=== PATIENT | female | born 1960 | race Two or more races ===

== ENCOUNTER 2024-10-23 15:27 | Emergency (ER) | payer OTHER ==
[~2024-10-23] VITALS: Ht 154.9 cm; Wt 74.7 kg
--- NOTE | 2024-10-23 16:06 | ED.PDOC ---
Musculoskeletal HPI Comments 64-year-old female patient presents to the emergency room for left lateral neck pain, left shoulder pain and left posterior knee pain. Patient reports that the pain in the neck started 2 years ago. Patient has increasing pain with lateral movements of the head. Patient reports that pain in the shoulder and the knee started 3 days ago. Patient denies any injury or trauma. Chief Complaint: Lower Extremity Time Seen by MD: 15:51 Primary Care Provider: damian Mcgovern Notes: Nurses Notes, Medications Allergies: Coded Allergies: NO KNOWN ALLERGIES (Unverified , 10/23/24) Home Meds Active Scripts Diclofenac Sodium (Actinic Ker (Diclofenac Sodium) 3 % Gel, 3 % TD TID for 21 Days, #252 GRAMS 0 Refills Prov:EDUARDO PEREZ DISCOUNT CLERK 10/23/24 Lidocaine (Anorectal) (Lidocaine 5%) 5 % Cre, 5 % EX QID for 21 Days, #168 GRAMS 0 Refills Prov:EDUARDO PEREZ DISCOUNT CLERK 10/23/24 Ibuprofen (Ibuprofen) 600 Mg Tab, 600 MG PO TID for 30 Days, #90 TAB 0 Refills Prov:EDUARDO PEREZ [facility] 10/23/24 Mode of Arrival: Ambulatory Past Medical History PAST MEDICAL HISTORY: Denies Surgical History: Denies all surgeries FEED CRUSHER History: No Pertinent FEED CRUSHER History Family History Family History: Reviewed,noncontributory to illness Social History Smoker: Non-Smoker Alcohol: Denies ETOH Use Drugs: Denies Drug Use Lives In: Home Constitutional: denies: chills, diaphoresis, fatigue, fever, malaise, sweats, weakness, others EENTM: denies: blurred vision, double vision, ear bleeding, ear discharge, ear drainage, ear pain, ear ringing, eye pain, eye redness, hearing loss, mouth pain, mouth swelling, nasal discharge, nose bleeding, nose congestion, nose pain, photophobia, tearing, throat pain, throat swelling, voice changes, others Respiratory: denies: cough, hemoptysis, orthopnea, SOB at rest, shortness of breath, SOB with excertion, stridor, wheezing, others Cardiovascular: denies: chest pain, dizzy spells, diaphoresis, Dyspnea on exertion, edema, irregular heart beat, left arm pain, lightheadedness, palpitations, PND, syncope, others Gastrointestinal: denies: abdomen distended, abdominal pain, blood streaked bowels, constipated, diarrhea, dysphagia, difficulty swallowing, hematemesis, melena, nausea, poor appetite, poor fluid intake, rectal bleeding, rectal pain, vomiting, others Genitourinary: denies: abnormal vagina bleeding, burning, dyspareunia, dysuria, flank pain, frequency, hematuria, incontinence, pain, , vagina discharge, urgency, others Neurological: denies: dizziness, fainting, headache, left sided numbness, left sided weakness, numbness, paresthesia, pre-existing deficit, right sided numbness, right sided weakness, seizure, speech problems, tingling, tremors, weakness, others Musculoskeletal: reports: joint pain, joint swelling, neck pain Integumetry: denies: bruises, change in color, change in hair/nails, dryness, laceration, lesions, lumps, rash, wounds, others Allergic/Immunocompromised: denies: Difficulty Healing, Frequent Infections, Hives, Itching, others Hematologic/Lymphatic: denies: anemia, blood clots, easy bleeding, easy bruising, swollen glands, others Endocrine: denies: excessive hunger, excessive sweating, excessive thirst, excessive urination, flushing, intolerance to cold, intolerance to heat, unexplained weight gain, unexplained weight loss, others Psychiatric: denies: anxiety, bipolar disorder, depression, hopeless, panic disorder, schizophrenia, sleepless, suicidal, others All Other Systems: Reviewed and Negative Physical Exam General Appearance: No Apparent Distress, Normal HEENT: Normal ENT Inspection, Pharynx Normal, TMs Normal Neck: Full Range of Motion, Non-Tender, Normal, Normal Inspection Respiratory: Chest Non-Tender, Lungs Clear, No Accessory Muscle Use, No Respiratory Distress, Normal Breath Sounds Cardiovascular: No Edema, No JVD, No Murmur, No Gallop, Normal Peripheral Pulses, Regular Rate/Rhythm Breast Exam: Deferred Gastrointestinal: No Organomegaly, Non Tender, No Pulsatile Mass, Normal Bowel Sounds, Soft Genitalia: Deferred Pelvic: Deferred Rectal: Deferred Extremities: Calf tenderness, No calf tenderness (Left calf tenderness, no erythema, no swelling, no), Normal capillary refill, Normal inspection, Normal range of motion, No pedal edema Musculoskeletal : Location: Left Extremity Location: Knee, Shoulder Apperance: Swelling, Tenderness: Mild Neurologic: Alert, knitting machine operator II-XII nml as Tested, No Motor Deficits, Normal Affect, Normal Mood, No Sensory Deficits Cerebellar Function: Normal Reflexes: Normal Skin: Dry, Normal Color, Warm Lymphatic: No Adenopathy Was a procedure done? Was a procedure done?: No Differential Diagnosis EXT Differential Diagnosis: Sprain, Strain, Arthritis, Bursitis X-Ray, Labs, Meds, VS Vital Signs Date Time Temp Pulse Resp B/P (MAP) Pulse Ox O2 Delivery O2 Flow Rate FiO2 10/23/24 15:51 97.6 83 16 159/51 (87) 97 PATIENT: RACHID ANTONIOT: [id number]: [id number] : 1960 LOC: ER ROOM / BED: / AGE / SEX: 64 / F ADM STATUS: REG ER SERVICE [id number] ORDERING PHYSICIAN: EDUARDO PEREZ PROCEDURE(s): LKNE3 - L KNEE 3V XRAY REASON: pain, swelling ORDER NUMBER(s): [id number], ACCESSION NUMBER(s): [id number] CLINICAL INDICATION: pain, swelling TECHNIQUE: 3 radiographic views of the left knee were obtained. Comparison: None FINDINGS/IMPRESSION: There is fracture of the superior lateral patella which appears subacute to chronic versus bipartite patella. Recommend correlation with point tenderness to exclude an acute injury. Otherwise, no evidence of acute traumatic fractures or dislocations. Mild tricompartmental degenerative changes. Trace suprapatellar effusion. ATED BY: CASS ADAMES DO DICTATED DATE/TIME: 10/23/24 1640 SIGNED BY: CASS ADAMES DO SIGNED DATE/TIME: 10/23/24 1640 CC: X-Ray, Labs, Meds, VS Comment 64-year-old female patient presents to the emergency room for left shoulder pain, left knee pain and left lateral neck pain. Patient has left lateral neck pain is chronic in nature and started 2 years ago. Patient has pain in the neck increases with lateral movement. Mild inflammation noted to the anterior portion of the left knee. Patient reports pain in the posterior portion of the LEs the radiating down the calf no swelling noted to the calf. Additional tests considered: Ultrasound of calf to rule out DVT considered but not ordered due to the following: Well's Test negative; Homans sign negative. Patient denied any recent travel. Patient denies chest pain. Patient denies shortness of breath. Time of 1ST Reevaluation: 17:00 Reevaluation 1ST: Unchanged Patient Education/Counseling: Diagnosis, Treatment, Prognosis Family Education/Counseling: No Family Present Departure 1 Departure Time of Disposition: 17:05 Impression: Primary Impression: Knee effusion, left Additional Impression: Patellar fracture Qualified Codes: S82.002A - Unspecified fracture of left patella, initial encounter for closed fracture Disposition: HOME / SELF CARE / HOMELESS Condition: Stable e-Prescriptions Diclofenac Sodium (Actinic Ker (Diclofenac Sodium) 3 % Gel 3 % TD TID for 21 Days, #252 GRAMS 0 Refills Prov: EDUARDO PEREZ [facility] 10/23/24 Lidocaine (Anorectal) (Lidocaine 5%) 5 % Cre 5 % EX QID for 21 Days, #168 GRAMS 0 Refills Prov: EDUARDO PEREZ [facility] 10/23/24 Ibuprofen (Ibuprofen) 600 Mg Tab 600 MG PO TID for 30 Days, #90 TAB 0 Refills Prov: EDUARDO PEREZ [facility] 10/23/24 Discharged With: Self Critical Care Note Critical Care Time?: No Stability Stability form required: No Heart Score Heart Score: Heart Score Response (Comments) Value History N/A 0 EKG N/A 0 Age N/A 0 Risk Factors N/A 0 Troponin N/A 0 Total 0 EDUARDO PEREZ DISCOUNT CLERK Oct 23, 2024 16:06
--- NOTE | 2024-10-23 16:42 | DVH ---
CLINICAL INDICATION: pain, swelling TECHNIQUE: 3 radiographic views of the left knee were obtained. Comparison: None FINDINGS/IMPRESSION: There is fracture of the superior lateral patella which appears subacute to chronic versus bipartite patella. Recommend correlation with point tenderness to exclude an acute injury. Otherwise, no evid ence of acute traumatic fractures or dislocations. Mild tricompartmental degenerative changes. Trace suprapatellar effusion.
--- NOTE | 2024-10-23 16:43 | DVH ---
CLINICAL INDICATION: left shoulder pain x 3 days TECHNIQUE: 3 radiographic views of the left shoulder were obtained. Comparison: None FINDINGS/IMPRESSION: There is no evidence of acute fracture or dislocation. The visualized joint space is well maintained. The alignment is anatomical. There is no radiopaque foreign body.
[2024-10-23] MEDS ORDERED: LIDO5CRE14 EX (17:43)
[2024-10-23] MEDS ORDERED: DICL5GEL TD (17:43)
[2024-10-23] MEDS ORDERED: IBUP-1454 PO (17:43)
[2024-10-23 18:18] VITALS: BP 147/56; PULSE 77; RESP 16; TEMP 98.5; O2SAT 97
[2024-10-23] MEDS: KETOROLAC TROMETH 60MG/2ML VIAL IM ONE (18:27)
== END 2024-10-23 18:39 | disposition home or self-care (01) ==
LOC: ER 15:27
DX: S82.092A Other fracture of left patella, initial encounter for closed fracture (principal); M25.512 Pain in left shoulder; M54.2 Cervicalgia; M25.462 Effusion, left knee; Z79.899 Other long term (current) drug therapy; X58.XXXA Exposure to other specified factors, initial encounter; Y93.89 Activity, other specified; Y92.89 Other specified places as the place of occurrence of the external cause; Y99.8 Other external cause status
CPT/HCPCS: 73030; 73562; 96372; 99284; J1885